=== PATIENT | female | born 1980 | race Caucasian/White ===

== ENCOUNTER 2020-12-07 13:02 | Emergency (ER) | payer MEDICAID, OTHER ==
[~2020-12-07] VITALS: Ht 162.6 cm; Wt 120.0 kg
[2020-12-07 14:13] VITALS: BP 156/98
== END 2020-12-07 14:14 | disposition home or self-care (01) ==
LOC: ER 13:02
DX: S83.411A Sprain of medial collateral ligament of right knee, initial encounter (principal); M25.461 Effusion, right knee; F15.90 Other stimulant use, unspecified, uncomplicated; Z72.89 Other problems related to lifestyle; W10.9XXA Fall (on) (from) unspecified stairs and steps, initial encounter; Z91.81 History of falling; Y93.89 Activity, other specified; Y92.89 Other specified places as the place of occurrence of the external cause; Y99.8 Other external cause status
CPT/HCPCS: 73560; 99284